=== PATIENT | female | born 1975 | race Caucasian/White ===

== ENCOUNTER 2018-08-15 20:16 | Emergency (ER) | payer MEDICAID ==
--- NOTE | 2018-08-15 20:38 | Emergency Department Record ---
History of Present Illness - General Chief Complaint: Cough Stated Complaint: cough,back pain Time Seen by Provider: 08/15/18 20:17 Source: Patient Mode of Arrival: Ambulatory Limitations: No limitations - History of Present Illness Initial Comments: 43 yo female presents to ED for evaluation of cough symptoms x 1 week. Patient reports subjective fevers and chills, denies previous lung problems (asthma, COPD). 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 Patient does report history of seizures, last seizure was 10 days ago. MD Complaint: Cough Onset/Timin -: Days(s) Severity: Moderate Quality: Aching Consistency: Constant Improves With: Nothing Worsens With: Nothing Associated Symptoms: Denies other symptoms Treatments Prior to Arrival: None - Related Data Home Medications Medication Instructions Recorded Confirmed Last Taken Epinephrine [Epipen] 0.3 mg IM ASDIR PRN 08/15/18 08/15/18 Unknown Previous Rx's Medication Instructions Recorded Azithromycin [Zithromax] 250 mg PO DAILY #4 tab 08/15/18 Benzonatate [Tessalon] 2 cap PO Q8H PRN #30 cap 08/15/18 Allergies Allergy/AdvReac Type Severity Reaction Status Date / Time bee venom protein (honey bee) Allergy SWELLING Verified 08/15/18 20:23 (GENERAL) sumatriptan [From Imitrex] Allergy SWELLING Verified 08/15/18 20:23 (GENERAL) Travel Screening - Travel/Exposure Within Last 30 Days Have you traveled within the last 30 days?: No Review of Systems Constitutional: Reports: Chills, Fever. Denies: Malaise, Night sweats Eyes: Denies: Eye discharge, Eye pain ENT: Denies: Congestion, Ear pain, Epistaxis Respiratory: Reports: Cough. Denies: Dyspnea Cardiovascular: Denies: Chest pain, Dyspnea on exertion Endocrine: Denies: Fatigue, Heat or cold intolerance Gastrointestinal: Denies: Abdominal pain, Nausea, Vomiting Genitourinary: Denies: Incontinence, Retention Musculoskeletal: Reports: Back pain. Denies: Arthralgia Skin: Denies: Bruising, Change in color Neurological: Denies: Abnormal gait, Confusion, Headache, Seizure Psychiatric: Denies: Anxiety Hematological/Lymphatic: Denies: Anemia, Blood Clots Past Medical History - SOCIAL HISTORY Smoking Status: Current every day smoker Alcohol Use: None Drug Use: None - RESPIRATORY Hx Respiratory Disorders: No - CARDIOVASCULAR Hx Cardio Disorders: No Hx Irregular Heartbeat: Yes (hx of SVT) - NEURO Hx Neuro Disorders: Yes Hx Seizures: Yes (Grand mal (Last one during week of 08/06/18) - GI Hx GI Disorders: No - Hx Genitourinary Disorders: No - ENDOCRINE Hx Endocrine Disorders: No - MUSCULOSKELETAL Hx Musculoskeletal Disorders: Yes - PSYCH Hx Psych Problems: No - HEMATOLOGY/ONCOLOGY Hx Hematology/Oncology Disorders: No Family Medical History Any Significant Family History?: No Physical Exam - General General Appearance: Alert, Oriented x3, Cooperative, Moderate distress Limitations: No limitations - Head Head exam: Atraumatic, Normocephalic, Normal inspection Head exam detail: negative: Abrasion, Contusion, Ibrahim's sign, General tenderness, Hematoma, Laceration - Eye Eye exam: Normal appearance. negative: Conjunctival injection, Periorbital swelling, Periorbital tenderness, Scleral icterus - ENT Ear exam: negative: Auricular hematoma, Auricular trauma Nasal Exam: negative: Active bleeding, Discharge, Dried blood, Foreign body Mouth exam: negative: Drooling, Laceration, Muffled voice, Tongue elevation - Neck Neck exam: Normal inspection. negative: Meningismus, Tenderness - Respiratory Respiratory exam: Normal lung sounds bilaterally. negative: Rales, Respiratory distress, Rhonchi, Stridor - Cardiovascular Cardiovascular Exam: Regular rate, Normal rhythm, Normal heart sounds - GI/Abdominal GI/Abdominal exam: Soft. negative: Rebound, Rigid, Tenderness - Rectal Rectal exam: Deferred - exam: Deferred - Extremities Extremities exam: Normal inspection. negative: Pedal edema, Tenderness - Back Back exam: Denies: CVA tenderness (R), CVA tenderness (L) - Neurological Neurological exam: Alert, Normal gait, Oriented X3 - Psychiatric Psychiatric exam: Normal affect, Normal mood - Skin Skin exam: Normal color. negative: Abrasion Type of lesion: negative: abrasion Course Vital Signs 08/15/18 20:21 Temperature 99.1 F Pulse Rate [ 95 H Pulse Ox Probe] Respiratory 24 Rate Blood Pressure 148/107 [Left Arm] Pulse Ox 99 - Reevaluation(s) Reevaluation #1: 08/15/18 21:17 CXR: Bilateral lower lobe opacities Patient was updated on her radiograph result, will initiate Zithromax and tessalon as directed. Patient appears stable for discharge at this time. Disposition Disposition: Discharge Clinical Impression: CAP (community acquired pneumonia) Qualifiers: Laterality: right Lung location: lower lobe of lung Qualified Code(s): J18.1 - Lobar pneumonia, unspecified organism Disposition: Home, Self-Care Condition: (2) Stable Instructions: Community Acquired Pneumonia (ED) Additional Instructions: Return to ED if your symptoms worsen or if you have any concerns. Zithromax and Tessalon Perles as directed. Follow-up with your family doctor in 3-5 days as directed. Prescriptions: Azithromycin [Zithromax] 250 mg PO DAILY #4 tab Benzonatate [Tessalon] 2 cap PO Q8H PRN #30 cap PRN Reason: Cough Forms: Patient Portal Access Time of Disposition: 21:18 Quality - Quality Measures Quality Measures: N/A - Blood Pressure Screening Does Patient Have Any of the Following: No Blood Pressure Classification: Hypertensive Reading Systolic Measurement: 148 Diastolic Measurement: 107 Screening for High Blood Pressure: < First Hypertensive BP, F/U Documented > [ G8950] First Hypertensive Follow-up Interventions: Referral to alternative/primary care provider.
[2018-08-15] MEDS ORDERED: BENZONATATE 100 MG CAPSULE PO ONE (21:18)
[2018-08-15] MEDS ORDERED: AZITHROMYCIN 500 MG TABLET PO ONE (21:18)
== END 2018-08-15 21:44 | disposition home or self-care (01) ==
LOC: ER 20:16
DX: J18.1 Lobar pneumonia, unspecified organism (principal); F17.210 Nicotine dependence, cigarettes, uncomplicated
CPT/HCPCS: 71046; 99283

== ENCOUNTER 2018-08-28 20:07 | Emergency (ER) | payer MEDICAID ==
[2018-08-28] MEDS ORDERED: ACETAMINOPHEN 1,000 MG/100 ML BTL IVPB ONE (20:25)
[2018-08-28] MEDS ORDERED: IPRATROPIUM/ALBUTEROL (0.5MG/3MG) NEB INH ONE (20:25)
[2018-08-28] MEDS ORDERED: 0.9 % SODIUM CHLORIDE 1000ML 1,000 ML IV SCH (20:30)
--- NOTE | 2018-08-28 20:30 | Emergency Department Record ---
History of Present Illness - General Chief Complaint: Cough Stated Complaint: RHONA,COUGH/PNEUMONIA Time Seen by Provider: 08/28/18 20:21 Source: Patient Mode of Arrival: Ambulatory Limitations: No limitations - History of Present Illness Initial Comments: 43 yo female presents to ED for evaluation of worsening difficulty in breathing symptoms following recent diagnosis of pneumonia 1 week ago. Patient was treated with Zithromax and Tessalon Perles, reports that her symptoms have not improved and reports pain to the left scapular region as well. Patient denies previous history of COPD/asthma. Patient reports decreased appetite and intermittent vomiting symptoms. MD Complaint: Cough Onset/Timin -: Week(s) Severity: Moderate Quality: Aching Consistency: Constant Improves With: Nothing Worsens With: Nothing Associated Symptoms: Chills, Cough, Myalgias, Shortness of breath Treatments Prior to Arrival: Antibiotics - Related Data Previous Rx's Medication Instructions Recorded Azithromycin [Zithromax] 250 mg PO DAILY #4 tab 08/15/18 Benzonatate [Tessalon] 2 cap PO Q8H PRN #30 cap 08/15/18 Albuterol Sulfate [Proair Hfa] 1 - 2 puff IH .EVERY 4-6 HOURS PRN 08/28/18 #1 inhaler Doxycycline Hyclate 200 mg PO BID #15 tab.dr 08/28/18 Allergies Allergy/AdvReac Type Severity Reaction Status Date / Time bee venom protein (honey bee) Allergy SWELLING Verified 08/15/18 20:23 (GENERAL) sumatriptan [From Imitrex] Allergy SWELLING Verified 08/15/18 20:23 (GENERAL) Review of Systems Constitutional: Reports: Chills, Fever. Denies: Malaise, Night sweats Eyes: Denies: Eye discharge, Eye pain ENT: Denies: Congestion, Ear pain, Epistaxis Respiratory: Reports: Cough, Dyspnea Cardiovascular: Denies: Chest pain, Dyspnea on exertion Endocrine: Denies: Fatigue, Heat or cold intolerance Gastrointestinal: Reports: Nausea, Vomiting. Denies: Abdominal pain Genitourinary: Denies: Incontinence, Retention Musculoskeletal: Reports: Back pain (left scapular pain). Denies: Arthralgia Skin: Denies: Bruising, Change in color Neurological: Denies: Abnormal gait, Confusion, Headache, Seizure Psychiatric: Denies: Anxiety Hematological/Lymphatic: Denies: Anemia, Blood Clots Past Medical History - SOCIAL HISTORY Smoking Status: Current every day smoker Drug Use: None - RESPIRATORY Hx Respiratory Disorders: No - CARDIOVASCULAR Hx Cardio Disorders: No Hx Irregular Heartbeat: Yes (hx of SVT) - NEURO Hx Neuro Disorders: Yes Hx Seizures: Yes (Grand mal (Last one during week of 08/06/18) - GI Hx GI Disorders: No - Hx Genitourinary Disorders: No - ENDOCRINE Hx Endocrine Disorders: No - MUSCULOSKELETAL Hx Musculoskeletal Disorders: Yes - PSYCH Hx Psych Problems: No - HEMATOLOGY/ONCOLOGY Hx Hematology/Oncology Disorders: No Physical Exam - General General Appearance: Alert, Oriented x3, Cooperative, Mild distress Limitations: No limitations - Head Head exam: Atraumatic, Normocephalic, Normal inspection Head exam detail: negative: Abrasion, Contusion, Ibrahim's sign, General tenderness, Hematoma, Laceration - Eye Eye exam: Normal appearance. negative: Conjunctival injection, Periorbital swelling, Periorbital tenderness, Scleral icterus - ENT Ear exam: negative: Auricular hematoma, Auricular trauma Nasal Exam: negative: Active bleeding, Discharge, Dried blood, Foreign body Mouth exam: negative: Drooling, Laceration, Muffled voice, Tongue elevation - Neck Neck exam: Normal inspection. negative: Meningismus, Tenderness - Respiratory Respiratory exam: Decreased breath sounds. negative: Rales, Respiratory distress, Rhonchi, Stridor - Cardiovascular Cardiovascular Exam: Normal rhythm, Normal heart sounds, Tachycardia - GI/Abdominal GI/Abdominal exam: Soft. negative: Rebound, Rigid, Tenderness - Rectal Rectal exam: Deferred - exam: Deferred - Extremities Extremities exam: Normal inspection. negative: Calf tenderness, Pedal edema, Tenderness - Back Back exam: Denies: CVA tenderness (R), CVA tenderness (L) - Neurological Neurological exam: Alert, Normal gait, Oriented X3 - Psychiatric Psychiatric exam: Normal affect, Normal mood - Skin Skin exam: Normal color. negative: Abrasion Type of lesion: negative: abrasion Course - Reevaluation(s) Reevaluation #1: 08/28/18 20:38 EKG: NSR 97 Normal axis, normal intervals No acute ST-T wave changes Reevaluation #2: 08/28/18 21:44 Labs reviewed and are grossly unremarkable for an acute process. CXR results are pending. Reevaluation #3: 08/28/18 21:51 Patient reports that her dyspnea symptoms are greatly improved CXR results are pending. Reevaluation #4: 08/28/18 22:10 CXR: No significant interval change from previous Patient was updated on all results, will prescribe pro-air inhaler as this greatly improved her symptoms and prescribe Doxycycline for possible residual infection. Patient agrees with the plan of care as discussed, and appears stable for discharge at this time. Medical Decision Making - Lab Data Result diagrams: 08/28/18 20:36 08/28/18 20:36 Disposition Disposition: Discharge Clinical Impression: CAP (community acquired pneumonia) Qualifiers: Laterality: unspecified laterality Qualified Code(s): J18.9 - Pneumonia, unspecified organism Disposition: Home, Self-Care Condition: (2) Stable Instructions: Community Acquired Pneumonia (ED) Additional Instructions: Return to ED if your symptoms worsen or if you have any concerns. Albuterol as directed. Follow-up with your family doctor in 1-3 days as directed. Prescriptions: Albuterol Sulfate [Proair Hfa] 1 - 2 puff IH .EVERY 4-6 HOURS PRN #1 inhaler PRN Reason: Difficulty In Breathing Doxycycline Hyclate 200 mg PO BID #15 tab.dr Forms: Patient Portal Access Time of Disposition: 22:12 Quality - Quality Measures Quality Measures: N/A - Blood Pressure Screening Does Patient Have Any of the Following: No Blood Pressure Classification: Hypertensive Reading Systolic Measurement: 170 Diastolic Measurement: 94 Screening for High Blood Pressure: < First Hypertensive BP, F/U Documented > [ G8950] First Hypertensive Follow-up Interventions: Referral to alternative/primary care provider.
[2018-08-28 20:46] LABS: BASO % 0.5 % (0-6); GRAN % 51.5 % (47-80); HEMATOCRIT 42.9 % (35.0-47.0); HEMOGLOBIN 14.2 gm/dl (11.6-16.0); LYMPH % 40.2 % (16-45); MEAN CELL VOLUME 99.5 fl (81-97); MEAN CORPUSCULAR HEMOGLOBIN 32.9 pg (27-33); MEAN CORPUSCULAR HGB CONC 33.1 g/dl (32-36); MEAN PLATELET VOLUME 9.2 fl (7.4-10.4); MONO % 5.8 % (0-9); PLATELET COUNT 278 K/uL (130-400); RED BLOOD COUNT 4.31 M/uL (3.80-5.40); RED CELL DISTRIBUTION WIDTH 12.9 % (11.5-14.5); WHITE BLOOD COUNT W/O DIFF 10.7 K/uL (4.2-12.2)
[2018-08-28 20:55] LABS: BLOOD UREA NITROGEN 4 mg/dL (6-20); CREATININE 0.5 mg/dL (0.5-0.9); EST GLOMERULAR FILTRATION RATE > 60 mL/min
[2018-08-28 20:56] LABS: TOTAL PROTEIN 7.6 g/dL (6.6-8.7)
[2018-08-28 20:58] LABS: GLUCOSE,RANDOM 87 mg/dL (74-109)
[2018-08-28 21:00] LABS: ALB/GLOB RATIO 1.3 (1.1-1.8); ALBUMIN 4.3 g/dL (4.0-5.0); ALT/SGPT 27 U/L (<33); AST/SGOT 16 U/L (10.0-35.0)
[2018-08-28 21:01] LABS: ALKALINE PHOSPHATASE 90 U/L (35-104)
[2018-08-28] MEDS ORDERED: DOXYCYCLINE HYCLATE 100 MG CAPSULE PO ONE (22:09)
== END 2018-08-28 22:20 | disposition home or self-care (01) ==
LOC: ER 20:07
DX: J18.9 Pneumonia, unspecified organism (principal); R06.02 Shortness of breath; F17.210 Nicotine dependence, cigarettes, uncomplicated
CPT/HCPCS: 71046; 80053; 85025; 93005; 93010; 94640; 96365; 99284; J7030

== ENCOUNTER 2018-09-06 18:56 | Emergency (ER) | payer MEDICAID ==
--- NOTE | 2018-09-06 19:33 | Emergency Department Record ---
History of Present Illness - General Chief Complaint: Headache Migraine Stated Complaint: HEADACHE, Time Seen by Provider: 09/06/18 19:12 Source: Patient Mode of Arrival: Ambulatory Limitations: No limitations - History of Present Illness Initial Comments: The patient is here due to a 2 week hx of a SCALES. The pain has been gradually worsening over the 2 weeks. It hurts over both sides of the head and neck. The pain is worse with coughing at times. She has been seen here twice in the last 3 weeks for pneumonia and is still on oral Abx's. There has been no fever, chills, visual changes, SOB, RHONA, or CP. The patient also denies any balance issues, vomiting or confusion. MD Complaint: Headache Onset/Timin -: Week(s) Onset Description: Gradual Location: Left, Neck, Right, Temporal Severity: Moderate Severity scale (1-10): 6 Quality: Throbbing Consistency: Intermittent Improves With: Nothing Worsens With: Other Context: Recent URI Treatments Prior to Arrival: Acetaminophen, Other Treatment Prior to Arrival Comment:: aleeve - Related Data Previous Rx's Medication Instructions Recorded Benzonatate [Tessalon] 2 cap PO Q8H PRN #30 cap 08/15/18 Albuterol Sulfate [Proair Hfa] 1 - 2 puff IH .EVERY 4-6 HOURS PRN 08/28/18 #1 inhaler Doxycycline Hyclate 200 mg PO BID #15 tab.dr 08/28/18 Naproxen [Naprosyn] 250 mg PO BID #14 tablet 09/06/18 Allergies Allergy/AdvReac Type Severity Reaction Status Date / Time bee venom protein (honey bee) Allergy SWELLING Verified 09/06/18 19:02 (GENERAL) sumatriptan [From Imitrex] Allergy SWELLING Verified 09/06/18 19:02 (GENERAL) Travel Screening - Travel/Exposure Within Last 30 Days Have you traveled within the last 30 days?: No - Travel/Exposure Within Last Year Have you traveled outside the [place] in the last year?: No - Additonal Travel Details Have you been exposed to anyone with a communicable illness?: No - Travel Symptoms Symptom Screening: None Review of Systems Constitutional: Denies: Chills, Fever Eyes: Denies: Eye discharge ENT: Denies: Congestion Respiratory: Reports: Cough, Dyspnea Past Medical History - SOCIAL HISTORY Smoking Status: Current every day smoker Alcohol Use: Occasional Drug Use: Occasional Drug Use Detail:: Marijuana - RESPIRATORY Hx Respiratory Disorders: No - CARDIOVASCULAR Hx Cardio Disorders: No Hx Irregular Heartbeat: Yes (hx of SVT) - NEURO Hx Neuro Disorders: Yes Hx Seizures: Yes (Grand mal (Last one during week of 08/06/18) - GI Hx GI Disorders: No - Hx Genitourinary Disorders: No - ENDOCRINE Hx Endocrine Disorders: No - MUSCULOSKELETAL Hx Musculoskeletal Disorders: Yes - PSYCH Hx Psych Problems: No - HEMATOLOGY/ONCOLOGY Hx Hematology/Oncology Disorders: No Family Medical History Any Significant Family History?: No Physical Exam - General General Appearance: Alert, Oriented x3, Cooperative, No acute distress - Head Head exam: Atraumatic, Normocephalic, Normal inspection - Eye Eye exam: Normal appearance, PERRL, EOMI. negative: Conjunctival injection - ENT ENT exam: Normal exam, TM's normal bilaterally Throat exam: Normal inspection. negative: Tonsillar erythema, Tonsillar exudate - Neck Neck exam: Normal inspection, Full ROM. negative: Lymphadenopathy, Meningismus (The neck is very supple.), Tenderness - Respiratory Respiratory exam: Normal lung sounds bilaterally. negative: Respiratory distress - Cardiovascular Cardiovascular Exam: Regular rate, Normal rhythm, Normal heart sounds - GI/Abdominal GI/Abdominal exam: Soft, Normal bowel sounds. negative: Tenderness - Extremities Extremities exam: Normal inspection, Full ROM, Normal capillary refill. negative: Tenderness - Neurological Neurological exam: Alert, Normal gait, Oriented X3, Other (Neg Drift and Rhomberg exams.). negative: Abnormal gait, Altered, Motor sensory deficit - Psychiatric Psychiatric exam: negative: Anxious, Depressed - Skin Skin exam: negative: Petechiae, Rash Course Vital Signs 09/06/18 19:04 Temperature 98 F Pulse Rate 99 H Respiratory 18 Rate Blood Pressure 120/60 Pulse Ox 98 - Reevaluation(s) Reevaluation #1: The patient is doing very well at this time. Her head pain has resolved completely and she is feeling very well. She is very hungry and would like to go home. I did discuss the need to see her family doctor later this week for recheck. 09/06/18 21:19 Medical Decision Making - Data Complexity MDM Data: Labs Ordered and/or Reviewed, X-Ray Ordered and/or Reviewed - Lab Data Result diagrams: 09/06/18 19:30 09/06/18 19:30 - Radiology Data Radiology results: Report reviewed (CXR: Neg for acute changes. Head CT: Neg.) Disposition Disposition: Discharge Clinical Impression: Headache Qualifiers: Headache type: unspecified Headache chronicity pattern: chronic headache Intractability: not intractable Qualified Code(s): R51 - Headache Disposition: Home, Self-Care Condition: (2) Stable Instructions: Acute Headache (ED) Additional Instructions: Please continue your regular medicines and take Naprosyn for pain. Please see your family doctor for recheck in 1-2 days. Return to the ER for any worsening head pain, fever, vomiting, or abdominal pain. Prescriptions: Naproxen [Naprosyn] 250 mg PO BID #14 tablet Forms: Patient Portal Access Time of Disposition: 21:17 Quality - Quality Measures Quality Measures: N/A - Blood Pressure Screening View Details: Yes Does Patient Have Any of the Following: No Blood Pressure Classification: Normal BP Reading Systolic Measurement: 107 Diastolic Measurement: 63 Screening for High Blood Pressure: < Normal BP, F/U Not Required > [G8783]
[2018-09-06] MEDS: ACETAMINOPHEN 1,000 MG/100 ML BTL IVPB ONE (19:34)
[2018-09-06 19:40] LABS: BASO % 0.5 % (0-6); EOS % 1.9 % (0-6); GRAN % 40.3 % (47-80); HEMATOCRIT 43.4 % (35.0-47.0); HEMOGLOBIN 14.6 gm/dl (11.6-16.0); LYMPH % 51.7 % (16-45); MEAN CELL VOLUME 98.2 fl (81-97); MEAN CORPUSCULAR HGB CONC 33.6 g/dl (32-36); MEAN PLATELET VOLUME 8.9 fl (7.4-10.4); MONO % 5.6 % (0-9); PLATELET COUNT 282 K/uL (130-400); RED BLOOD COUNT 4.42 M/uL (3.80-5.40); RED CELL DISTRIBUTION WIDTH 12.4 % (11.5-14.5); WHITE BLOOD COUNT W/O DIFF 9.9 K/uL (4.2-12.2)
[2018-09-06 19:52] LABS: BLOOD UREA NITROGEN 17 mg/dL (6-20); CREATININE 0.6 mg/dL (0.5-0.9); EST GLOMERULAR FILTRATION RATE > 60 mL/min
[2018-09-06 19:53] LABS: TOTAL PROTEIN 7.7 g/dL (6.6-8.7)
[2018-09-06 19:55] LABS: GLUCOSE,RANDOM 68 mg/dL (74-109)
[2018-09-06 19:57] LABS: ALT/SGPT 9 U/L (<33)
[2018-09-06 19:58] LABS: ALB/GLOB RATIO 1.3 (1.1-1.8); ALBUMIN 4.4 g/dL (4.0-5.0); ALKALINE PHOSPHATASE 90 U/L (35-104); AST/SGOT 12 U/L (10.0-35.0); LIPASE 65 U/L (13-60)
[2018-09-06 20:00] LABS: C-REACTIVE PROTEIN < 0.50 mg/dL (<0.5)
[2018-09-06] MEDS: METOCLOPRAMIDE HCL 10 MG/2 ML VIAL IVP ONE (20:36)
[2018-09-06] MEDS: DIPHENHYDRAMINE HCL 50 MG/ML VIAL IVP ONE (20:37)
[2018-09-06] MEDS: KETOROLAC 30 MG/ML VIAL IVP ONE (20:58)
--- NOTE | 2018-09-08 10:18 | RADIOLOGY REPORT ---
EXAM: CHEST, TWO VIEWS HISTORY: HEADACHE AND COUGH. TECHNIQUE: PA and lateral views of the chest were obtained. Comparison: Two view chest 08/28/18. Report of the prior study not as yet available within PACS. FINDINGS: The heart size is normal. Some mild interstitial prominence probably slightly improved from the prior study particularly in the right mid lung. No definite progressive infiltrates seen and no pleural effusion or pneumothorax evident. IMPRESSION: PERSISTENT INTERSTITIAL PROMINENCE SLIGHTLY IMPROVED FROM 08/28/18. JOB NUMBER: [id number] [facility]
--- NOTE | 2018-09-08 10:31 | CT SCAN REPORT ---
EXAM: EMERGENCY HEAD CT HISTORY: HEADACHES FOR TWO WEEKS. TECHNIQUE: Axial CT scan of the head was performed without IV contrast. Comparison: None. FINDINGS: No definite acute intracranial hemorrhage identified. No focal mass effect or midline shift apparent. No definite acute infarct or intracranial mass lesion is seen. No abnormal opacification of the visualized paranasal sinuses or mastoids evident. IMPRESSION: EMERGENCY NONCONTRAST HEAD CT APPEARS ESSENTIALLY NEGATIVE WITH NO DEFINITE ACUTE INTRACRANIAL HEMORRHAGE OR FOCAL MASS EFFECT IDENTIFIED. IF NEUROLOGIC SYMPTOMS PERSIST, A FOLLOW-UP BRAIN MRI MAY BE USEFUL FOR FURTHER EVALUATION IF NOT CONTRAINDICATED. [facility]: [id number] [facility]
== END 2018-09-06 21:22 | disposition home or self-care (01) ==
LOC: ER 18:56
DX: R51 Headache (principal); R05 Cough; M54.5 Low back pain; F17.210 Nicotine dependence, cigarettes, uncomplicated
CPT/HCPCS: 70450; 71046; 80053; 83690; 85025; 86140; 96365; 96375; 99284; J1200; J1885; J2765

== ENCOUNTER 2018-11-26 12:46 | Emergency (ER) | payer MEDICAID ==
[2018-11-26] MEDS ORDERED: ONDANSETRON HCL IV 4 MG/2 ML VIAL IV ONE (13:20)
[2018-11-26] MEDS ORDERED: 0.9 % SODIUM CHLORIDE 1,000 ML BAG IV ONE (13:20)
--- NOTE | 2018-11-26 13:22 | Emergency Department Record ---
History of Present Illness - General Chief complaint: Nausea, Vomiting, Diarrhea Stated complaint: VOMITING,DIARRHEA Time Seen by Provider: 11/26/18 13:16 Source: Patient Mode of Arrival: Ambulatory Limitations: No limitations - History of Present Illness Initial comments: The patient is here due to a 2 week hx of intermittent nausea, vomiting and loose watery stools. She has had some epigastric cramping also with the diarrhea. The patient denies any fever, blood in the stool or vomit, bad food exposure or recent travel. The patient has had her GB removed in the past. MD complaint: Abdominal pain, Diarrhea, Nausea, Vomiting Onset/Timin -: Week(s) Associated Abdominal Pain: Yes Location: Epigastric Radiation: Bilateral flank Severity: Moderate Severity scale (1-10): 5 Quality: Sharp Consistency: Intermittent Improves with: None Worsens with: None Associated Symptoms: Denies other symptoms - Related Data Previous Rx's Medication Instructions Recorded Albuterol Sulfate [Proair Hfa] 1 - 2 puff IH .EVERY 4-6 HOURS PRN 08/28/18 #1 inhaler Naproxen [Naprosyn] 250 mg PO BID #14 tablet 09/06/18 Sucralfate [Carafate] 1 gm PO QID #28 tablet 11/26/18 Allergies Allergy/AdvReac Type Severity Reaction Status Date / Time bee venom protein (honey bee) Allergy SWELLING Verified 11/26/18 13:06 (GENERAL) sumatriptan [From Imitrex] Allergy SWELLING Verified 11/26/18 13:06 (GENERAL) Travel Screening - Travel/Exposure Within Last 30 Days Have you traveled within the last 30 days?: No - Travel/Exposure Within Last Year Have you traveled outside the [place] in the last year?: No - Additonal Travel Details Have you been exposed to anyone with a communicable illness?: No - Travel Symptoms Symptom Screening: None Review of Systems Constitutional: Denies: Chills, Fever Eyes: Denies: Eye discharge ENT: Denies: Congestion Respiratory: Denies: Cough Past Medical History - SOCIAL HISTORY Smoking Status: Current every day smoker Alcohol Use: None Drug Use: Rare Drug Use Detail:: Marijuana - RESPIRATORY Hx Respiratory Disorders: No - CARDIOVASCULAR Hx Cardio Disorders: No Hx Irregular Heartbeat: Yes (hx of SVT) - NEURO Hx Neuro Disorders: Yes Hx Seizures: Yes (Grand mal (Last one during week of 08/06/18) - GI Hx GI Disorders: No - Hx Genitourinary Disorders: No - ENDOCRINE Hx Endocrine Disorders: No - MUSCULOSKELETAL Hx Musculoskeletal Disorders: Yes - PSYCH Hx Psych Problems: No - HEMATOLOGY/ONCOLOGY Hx Hematology/Oncology Disorders: No Family Medical History Any Significant Family History?: No Physical Exam - General General Appearance: Alert, Oriented x3, Cooperative, No acute distress - Head Head exam: Atraumatic, Normocephalic, Normal inspection - Eye Eye exam: Normal appearance, PERRL - ENT Throat exam: Normal inspection. negative: Tonsillar erythema, Tonsillar exudate - Neck Neck exam: Normal inspection, Full ROM. negative: Tenderness - Respiratory Respiratory exam: Normal lung sounds bilaterally. negative: Respiratory distress - Cardiovascular Cardiovascular Exam: Regular rate, Normal rhythm, Normal heart sounds - GI/Abdominal GI/Abdominal exam: Soft, Normal bowel sounds, Tenderness (There is mild epigastric tenderness.). negative: Rebound, Rigid - Extremities Extremities exam: Normal inspection, Full ROM, Normal capillary refill. negative: Tenderness - Neurological Neurological exam: Alert. negative: Motor sensory deficit Course Vital Signs 11/26/18 13:09 Temperature 98.3 F Pulse Rate 88 Respiratory 16 Rate Blood Pressure 118/74 Pulse Ox 100 - Reevaluation(s) Reevaluation #1: The patient is doing a lot better at this time. She denies any nausea or AP and is ambulating normally. On exam her abdomen is very soft and nontender in the upper abdomen. I did discuss the neg workup with her and the need for F/U with her PCP if not better. 11/26/18 14:59 11/26/18 15:04 Medical Decision Making - Data Complexity MDM Data: Labs Ordered and/or Reviewed - Lab Data Result diagrams: 11/26/18 13:30 11/26/18 13:30 Disposition Disposition: Discharge Clinical Impression: Gastroenteritis Disposition: Home, Self-Care Condition: (2) Stable Instructions: Acute Nausea and Vomiting (ED) Additional Instructions: Please take the Carafate as directed and see your Family doctor if not better in 3 days. Return to the ER for any worsening symptoms. Prescriptions: Sucralfate [Carafate] 1 gm PO QID #28 tablet Forms: Patient Portal Access Time of Disposition: 15:01 Quality - Quality Measures Quality Measures: N/A - Blood Pressure Screening View Details: Yes Does Patient Have Any of the Following: No Blood Pressure Classification: Normal BP Reading Systolic Measurement: 118 Diastolic Measurement: 74 Screening for High Blood Pressure: < Normal BP, F/U Not Required > [G8783]
[2018-11-26 13:45] LABS: BASO % 0.2 % (0-6); EOS % 0.8 % (0-6); GRAN % 57.8 % (47-80); HEMATOCRIT 41.9 % (35.0-47.0); HEMOGLOBIN 14.2 gm/dl (11.6-16.0); LYMPH % 36.2 % (16-45); MEAN CELL VOLUME 98.4 fl (81-97); MEAN CORPUSCULAR HEMOGLOBIN 33.3 pg (27-33); MEAN CORPUSCULAR HGB CONC 33.9 g/dl (32-36); MEAN PLATELET VOLUME 8.9 fl (7.4-10.4); PLATELET COUNT 221 K/uL (130-400); RED BLOOD COUNT 4.26 M/uL (3.80-5.40); RED CELL DISTRIBUTION WIDTH 13.3 % (11.5-14.5)
[2018-11-26 13:59] LABS: BLOOD UREA NITROGEN 11 mg/dL (6-20); CREATININE 0.6 mg/dL (0.5-0.9); EST GLOMERULAR FILTRATION RATE > 60 mL/min
[2018-11-26 14:00] LABS: TOTAL PROTEIN 7.2 g/dL (6.6-8.7)
[2018-11-26 14:02] LABS: GLUCOSE,RANDOM 101 mg/dL (74-109)
[2018-11-26 14:04] LABS: ALT/SGPT 7 U/L (<33)
[2018-11-26 14:05] LABS: ALB/GLOB RATIO 1.4 (1.1-1.8); ALBUMIN 4.2 g/dL (4.0-5.0); ALKALINE PHOSPHATASE 69 U/L (45-87); AST/SGOT 9 U/L (10.0-35.0)
[2018-11-26] MEDS ORDERED: SUCRALFATE 1 G/10 ML UD PO ONE (14:33)
[2018-11-26 14:38] LABS: URINE APPEARANCE CLEAR; URINE BILIRUBIN NEGATIVE (NEGATIVE); URINE BLOOD SMALL (NEGATIVE); URINE COLOR YELLOW; URINE GLUCOSE (UA) NEGATIVE (NEGATIVE); URINE KETONE TRACE (NEGATIVE); URINE LEUKOCYTE ESTERASE NEGATIVE (NEGATIVE); URINE NITRITE NEGATIVE (NEGATIVE); URINE PROTEIN NEGATIVE (NEGATIVE)
[2018-11-26 14:43] LABS: URINE WBC NONE SEEN (0-2/hpf)
== END 2018-11-26 15:16 | disposition home or self-care (01) ==
LOC: ER 12:46
DX: K52.9 Noninfective gastroenteritis and colitis, unspecified (principal); R11.2 Nausea with vomiting, unspecified; R10.13 Epigastric pain; F17.210 Nicotine dependence, cigarettes, uncomplicated
CPT/HCPCS: 99284 ×2; 96374; 96361; 83690; 85025; 80053; 81001; J2405; J7030